=== PATIENT | female | born 1995 | race Caucasian/White ===

== ENCOUNTER 2021-01-06 12:03 | Emergency (ER) | payer OTHER ==
[~2021-01-06 12:03] MED LIST: COLACE 100MG C100 MG PO; IBUPROFEN600 MG PO; PERCOCET 5/325 T1 EA PO; VISTARIL25 MG PO
== END 2021-01-06 14:47 | disposition home or self-care (01) ==
LOC: ER1 12:03
DX: O99.891 Other specified diseases and conditions complicating pregnancy (principal); M79.661 Pain in right lower leg; Z86.718 Personal history of other venous thrombosis and embolism; Z3A.00 Weeks of gestation of pregnancy not specified
CPT/HCPCS: 85379; 96372; 99283; J1650

== ENCOUNTER → 2021-01-07 | Outpatient (CLI) | payer OTHER | LOC: US 09:35 | DX: M79.604 Pain in right leg (principal) | CPT/HCPCS: 93971 ==

== ENCOUNTER 2021-09-16 06:06 | Emergency (ER) | payer OTHER ==
[2021-09-16 07:50] LABS: HEMOGLOBIN 11.3 gm/dl (12.3-15.3); RED BLOOD COUNT 4.31 M/UL (4.00-5.10); WHITE BLOOD COUNT 13.2 K/UL (4.5-11.0)
[2021-09-16 08:10] LABS: BUN/CREATININE RATIO 21 (0-10)
[2021-09-16] MEDS ORDERED: ZOFRAN ODT 4 MG4 MG SL ×2 (10:39→12:02)
[2021-09-16] MEDS ORDERED: ENDOCET 5-3251 EACH PO ×2 (10:39→12:02)
== END 2021-09-16 10:50 | disposition home or self-care (01) ==
LOC: ER1 06:06
PROVIDERS: Emergency Medicine
DX: K80.50 Calculus of bile duct without cholangitis or cholecystitis without obstruction (principal); F17.290 Nicotine dependence, other tobacco product, uncomplicated
CPT/HCPCS: 76705; 80053; 81001; 83690; 84703; 85025; 99284; Q9967

== ENCOUNTER → 2021-09-26 | Day surgery (SDC) | payer OTHER ==
[~2021-09-26] MED LIST changes: +ENDOCET 5-3251 EACH PO; +FAMOTIDINE20 MG PO; +ONDANSETRON ODT4 MG PO; +PERCOCET 5-3251 EACH PO; +PRENATAL VITAM1 EAC3 PO; +ZOFRAN ODT 4 MG4 MG SL
== END | disposition home or self-care (01) ==
LOC: OR 09:54
DX: K80.10 Calculus of gallbladder with chronic cholecystitis without obstruction (principal); K44.9 Diaphragmatic hernia without obstruction or gangrene; Z87.891 Personal history of nicotine dependence; Z79.899 Other long term (current) drug therapy
CPT/HCPCS: 84703; C1781; J0690; J1100; J1170; J1885; J2001; J2250; J2405; J2704; J3010